=== PATIENT | male | born 1930 | race Caucasian/White ===

== ENCOUNTER 2017-07-04 12:42 | Inpatient (IN) | payer MEDICARE, BC ==
--- NOTE | 2017-07-04 12:53 | ED Physician Documentation ---
General Adult - HISTORIAN Historian: patient - HPI Stated Complaint: weakness Chief Complaint: Weakness Onset: days ago (1) Timing: still present Severity: moderate Further Comments: yes ( at bedside - pt has dementia . She states he was "ok " yesterday and he did eat but did not drink much. reports no fever, normal bowel movements no urinary ouput since yesterday. No complaints of any issues prior to today. He was up and around until this am. He did sit at the kitchen table at breakfast this am but did not eat.) - ROS CONST: denies: fever, sweating EYES/ENT: nasal drainage CVS/RESP: cough MS/SKIN/LYMPH: none NEURO/PSYCH: denies: fainting, dizziness - PAST HX Past History: other (dementia, GERD, HTN ) Other History: none Surgeries/Procedures: other Immunizations: UTD Allergies/Adverse Reactions: Allergies Allergy/AdvReac Type Severity Reaction Status Date / Time No Known Allergies Allergy Verified 07/04/17 13:04 Home Medications: Ambulatory Orders Medication Instructions Recorded Aspirin [Adult Low Dose Aspirin EC] 81 mg PO DAILY 07/04/17 Atorvastatin Calcium 20 mg PO HS 07/04/17 Donepezil HCl 10 mg PO DAILY 07/04/17 Metoprolol Succinate [Toprol XL] 12.5 mg PO AM 07/04/17 Omeprazole [Prilosec] 20 mg PO BID 07/04/17 Vitamin E 1,000 unit PO BID 07/04/17 - SOCIAL HX Smoking History: non-smoker Alcohol Use: none Drug Use: none - FAMILY HX Family History: No - REVIEWED ASSESSMENTS Nursing Assessment Reviewed: Yes Vitals Reviewed: Yes ED Results Lab/Radiology - Radiology Radiology Impressions: CLINICAL HISTORY: Cough. FINDINGS: Examination of the chest in single portable AP view with no prior film for comparison demonstrates bipolar pacemaker overlying left hemithorax. There is a large hiatal hernia. Lungs are hypoventilated. Motion artifact blurs the vascular structures. There is questionable left perihilar infiltrate or atelectasis. IMPRESSION: Motion artifact. Large hiatal hernia. Hypoventilation with questionable left perihilar infiltrate or atelectasis. Electronically signed on Jul 04, 2017 1:21:42 PM CDT by: David Scherer General Adult Physical Exam - PHYSICAL EXAM GENERAL APPEARANCE: no distress EENT: eye inspection normal, other (yellow/green drainge from eyes. clear nasal drainge ) NECK: normal inspection RESPIRATORY: no resp distress, chest non-tender, breath sounds normal CVS: reg rate & rhythm, heart sounds normal, equal pulses, no murmur ABDOMEN: soft, normal bowel sounds, no distension, non-tender SKIN: warm/dry, normal color EXTREMITIES: non-tender, normal range of motion, no evidence of injury, no edema NEURO: other (he is not verbally responsive ) Discharge Clincal Impression: Pneumonia Qualifiers: Pneumonia type: due to unspecified organism Laterality: left Lung location: unspecified part of lung Qualified Code(s): J18.9 - Pneumonia, unspecified organism Comments: 1. [address] Geiger at [facility] and he states they do not have room for pt will be admitted here in house DG 2. 1410 Dr Ruelas agreed to inpt admission Dg Condition: Stable Disposition: ADMITTED INPATIENT Decision to Admit: [id number] Date of Decison to Admit: 07/04/17 Decision Time: 14:10
[2017-07-04] MEDS ORDERED: 0.9 % SODIUM CHLORIDE 1,000 ML IV ONE ×2 (13:00→13:51)
[2017-07-04 13:35] LABS: MEAN CORPUSCULAR HEMOGLOBIN 30.2 pg (28.0-34.0); MEAN CORPUSCULAR VOLUME 92.3 fl (80.0-100.0)
[2017-07-04] MEDS ORDERED: cefTRIAXone SODIUM 1 GM in 0.9 % SODIUM CHLORIDE 100 ML IV ONE (14:15)
[2017-07-04] MEDS ORDERED: LIDOCAINE Urojet 5 ML JEL MM ONE ×2 (14:26→14:33)
[2017-07-04] MEDS ORDERED: cefTRIAXone SODIUM 1 GM VIAL ONE (14:33)
[2017-07-04] MEDS ORDERED: 0.9 % SODIUM CHLORIDE 250 ML IV ONE (14:33)
[2017-07-04 16:31] VITALS: BMI 22.3
--- NOTE | 2017-07-04 17:48 | Diagnostic Imaging Report ---
[facility] [id number] [facility].[address] [id number] Report Submission Date: Jul 04, 2017 1:21:42 PM CDT Patient Study Name: BONNIE KO Date: Jul 04, 2017 1:11:21 PM CDT Modality Type: DX Gender: M Description: CHEST : 30 Institution: Physician: [facility] Portable chest CLINICAL HISTORY: Cough. FINDINGS: Examination of the chest in single portable AP view with no prior film for comparison demonstrates bipolar pacemaker overlying left hemithorax. There is a large hiatal hernia. Lungs are hypoventilated. Motion artifact blurs the vascular structures. There is questionable left perihilar infiltrate or atelectasis. IMPRESSION: Motion artifact. Large hiatal hernia. Hypoventilation with questionable left perihilar infiltrate or atelectasis. Electronically signed on Jul 04, 2017 1:21:42 PM CDT by: David ALONZO
[2017-07-04] MEDS ORDERED: ENOXAPARIN SODIUM 30 MG/0.3 ML DISP.SYRIN SQ SCH (20:00)
[2017-07-04] MEDS ORDERED: 0.9 % SODIUM CHLORIDE 1,000 ML IV SCH (20:00)
[2017-07-04] MEDS ORDERED: ENOXAPARIN SODIUM 30 MG/0.3 ML DISP.SYRIN SQ ONE (20:11)
[2017-07-04] MEDS ORDERED: ATORVASTATIN CALCIUM 80 MG TABLET PO ONE (20:11)
[2017-07-04] MEDS ORDERED: DONEPEZIL HCL 5 MG TABLET PO ONE (20:12)
[2017-07-04] MEDS ORDERED: Non-Formulary 1 EACH PO SCH (21:00)
[2017-07-04] MEDS: ATORVASTATIN CALCIUM 80 MG TABLET PO SCH ×2 (21:19→23:19)
[2017-07-04] MEDS: DONEPEZIL HCL 5 MG TABLET PO SCH ×2 (21:20→23:19)
[2017-07-05] MEDS ORDERED: 0.9 % SODIUM CHLORIDE 1,000 ML IV ONE (00:13)
[2017-07-05 01:55] VITALS: BP 56/35
[2017-07-05 08:57] LABS: APPEARANCE,URINE CLOUDY (CLEAR); COLOR,URINE AMBER (YELLOW); OCCULT BLOOD,URINE 1+ (NEGATIVE); PH URINE 5.5 (5.0 - 8.0); UROBILINOGEN URINE 0.2 Eu (0.2-1.0)
[2017-07-05] MEDS ORDERED: cefTRIAXone SODIUM 1 GM in 0.9 % SODIUM CHLORIDE 50 ML IV SCH (09:00)
[2017-07-05] MEDS ORDERED: [UNRECOGNIZED DRUG - OTHER] PO SCH (09:00)
--- NOTE | 2017-07-05 11:22 | History and Physical Report ---
CHIEF COMPLAINT: 1. Mental status change. 2. Generalized weakness and fatigue. HISTORY OF PRESENT ILLNESS: This is an 87-year-old male who lives independently with his [place] of [place], [place]. In the last couple of years, he has had a slow worsening of his ability to do work, as well as progressive dementia. He now can really only answer in just 1 or 2 words and it is very difficult to have conversations with him according to his son. This morning, he got up and actually went down. Fortunately, his grandson was there and was able to get him lifted back up again and did so. However, because of continued weakness and worsening confusion, he was brought to the emergency room for evaluation. There he was noted to be markedly dehydrated and his chest x-ray showed likely a left perihilar infiltrate and a remarkably large hiatal hernia. He also has a pacemaker in his left upper chest. It does not appear to be a defibrillator. Additional labs showed him to be markedly azotemic with a BUN of 41 and a creatinine of 2.3. GFR was estimated at 29. Blood sugar was 203. The rest of his labs essentially were at baseline. His EKG shows a completely paced rhythm with a rate of 95 beats per minute. PAST MEDICAL HISTORY: 1. 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 2. 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 3. He has, as previously stated, slowly progressive dementia. He denies any history of any cancer. Denies any history of diabetes. No history of hypertension. PAST SURGICAL HISTORY: 1. Coronary artery bypass grafting x5 vessels at age 58. 2. Pacemaker placement at around age 70. He had that replaced or the batteries changed, they are not sure which, about 3 years ago. 3. He has had cataract surgery. 4. He had total knee replacements x2. MEDICATIONS: His medications are taken [facility] and are as follows: 1. Atorvastatin 40 mg daily. 2. Donepezil 10 mg daily. 3. Ocuvite 1 tablet b.i.d. 4. Omeprazole 20 mg p.o. b.i.d. 5. Vitamin E 1000 units b.i.d. ALLERGIES: He is allergic to no known medications. SOCIAL HISTORY: He is a [employer]. He has been to his first for 60 years. He has 3 children. 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 He quit smoking about 30 years ago. No real alcohol history. FAMILY HISTORY: His dad in his 80s. His mother at age 88. Both of them from old age. He has 13 siblings. One as an . One sister had coronary disease. Coronary disease is noted in several family members. One brother had cancer. They are not sure what kind it was. REVIEW OF SYSTEMS: Review of systems cannot be obtained because he is not responsive. PHYSICAL EXAMINATION: General: This is a nonresponsive 87-year-old male who clinically looks markedly dehydrated. HEENT: Shows his head to be normocephalic and atraumatic. His mucous membranes are extremely dry. He is edentulous. Neck: He has no carotid bruits. No thyroid masses. Lungs: Lungs have decreased air movement in all lung du. Chest: A pacemaker is in place in the left upper chest. He has a well- healed sternotomy scar, as well as chest tube scars in his upper abdomen. Abdomen: He has decreased bowel sounds. No guarding or rebound is appreciated. Genitalia: He is not circumcised. Testes are down bilaterally. No inguinal hernias are identified. Extremities: He has scars over both knees consistent with bilateral total knee replacements. He has easily palpable dorsalis pedis and posterior tibial pulses ; however, his feet are cool to the touch. He does have a small, what looks like an abrasion over his right great IP joint on the tibial aspect. Otherwise , no skin breakdown is noted. I cannot do sensation testing because of his mental status. LABORATORY: White count 8.5, hemoglobin 13.7, hematocrit 41.7, platelets 194,000. Chemistry shows a sodium of 142, potassium 3.6, chloride 104, BUN 41, creatinine 2.3, glucose 203, bilirubin is 0.9. Liver function tests are not elevated. Urinalysis is clear except for a small amount of blood. RADIOLOGY: Chest x-ray again with a large hiatal hernia, pacemaker, and possible left perihilar infiltrate. EKG, rate of 95 paced rhythm. ASSESSMENT: 1. Acute mental status changes. 2. Left perihilar infiltrate. 3. Large hiatal hernia. 4. Progressive dementia. 5. Atherosclerotic coronary vascular disease without any evidence of ongoing ischemia at this time. 6. Dehydration. 7. Acute renal failure, likely acute on chronic renal failure. PLAN: 1. He is admitted. 2. I am going to gently rehydrate him with normal saline at 100 mL an hour. 3. Continue Rocephin as was started in the emergency department for his pneumonia. 4. We will get another chest x-ray after he has been hydrated a little bit to see if we can delineate further the extent of his pneumonia. 5. If he does not recover significantly, then we may need to consider placement, and the family is open to this and understands this will likely have to happen at some point. [place]
--- NOTE | 2017-07-05 15:50 | Discharge Summary ---
DATE OF ADMISSION: July 04, 2017 DATE OF DISCHARGE: July 05, 2017. . DIAGNOSES ON THIS HOSPITALIZATION: 1. Heart failure. 2. Azotemia. 3. Left perihilar pneumonia. 4. Dementia. 5. Acute on chronic renal failure. SUMMARIZATION OF ADMISSION HISTORY AND PHYSICAL: This is an 87-year-old male with a slowly progressive course of dementia which has been advancing for at least the last few years and worsening in the last few months. He no longer can carry on a conversation. He had a fall earlier on the day of admission and was brought to the hospital for an evaluation where he was noted to be markedly azotemic and dehydrated. He also had left perihilar pneumonia. HOSPITAL COURSE: He was admitted and initially started on IV Levaquin but that was switched to Rocephin. He continued to decline. We did a bolus and his blood pressure continued to drop and he on the morning of July 05, 2017, at 02:15 hours with family at his bedside. No resuscitation was attempted per the wishes of the family. His body was released to [facility]. [place]
== END 2017-07-05 04:00 | disposition expired | DRG 291 ==
LOC: ED 12:42 → SOUTH 14:37
PROVIDERS: ADMIT Family Medicine; ATTEND Family Medicine
DX: I50.9 Heart failure, unspecified (principal); J18.9 Pneumonia, unspecified organism; N17.8 Other acute kidney failure; R79.89 Other specified abnormal findings of blood chemistry; F03.90 Unspecified dementia, unspecified severity, without behavioral disturbance, psychotic disturbance, mood disturbance, and anxiety
CPT/HCPCS: 51701; 71045; 80053; 81002; 85025; 93005; J0696; J1650; J7030; J7050; 87040; 96365; 96366; 99222; 99238; 99284